=== PATIENT | female | born 1995 | race American Indian/Alaskan Native ===

== ENCOUNTER 2017-10-09 01:14 | Inpatient (IN) | payer MEDICAID ==
[2017-10-09] MEDS ORDERED: LACTATED RINGERS 1,000 ML IV ONE (04:16)
[2017-10-09] MEDS ORDERED: SUBLIMAZE IV ONE (04:49)
[2017-10-09] MEDS ORDERED: STADOL IV PRN (04:49)
[2017-10-09] MEDS ORDERED: POLYCILLIN/NS 2 GM/100 ML 2 GM/100 ML BAG IV SCH (05:00)
[2017-10-09] MEDS: LACTATED RINGERS 1,000 ML IV SCH ×3 (05:13→16:39)
[2017-10-09 05:19] LABS: Basophils # (Auto) 0.1 K/mm3 (0.0-0.1); Basophils % (Auto) 0.5 % (0.0-1.8); Eosinophils # (Auto) 0.1 K/mm3 (0.0-0.4); Eosinophils % (Auto) 0.9 % (0.0-4.3); Hematocrit 41.7 % (30.3-42.9); Hemoglobin 13.9 gm/dl (10.1-14.3); Lymphocytes # (Auto) 2.1 K/mm3 (1.2-5.4); Lymphocytes % (Auto) 15.8 % (13.4-35.0); Mean Corpuscular HGB Conc 33 % (30-34); Mean Corpuscular Hemoglobin 31 pg (28-32); Mean Corpuscular Volume 92 fl (79-97); Monocytes # (Auto) 1.7 K/mm3 (0.0-0.8); Platelet Count 238 K/mm3 (140-440); Red Blood Count 4.56 M/mm3 (3.65-5.03); Red Cell Distribution Width 14.3 % (13.2-15.2)
[2017-10-09] MEDS ORDERED: BRETHINE ONE (07:28)
[2017-10-09] MEDS ORDERED: PITOCin/NS 20 UNIT/1000ML DRIP 20,000 MILLIUNITS/1,000 ML BAG IV ONE (07:31)
--- NOTE | 2017-10-09 07:57 | History and Physical Report ---
History of Present Illness Date of examination: 10/09/17 Date of admission: 10/09/17 04:54 Chief complaint: Labor History of present illness: Pt is a 21yo BF EDC 10/13/17; EGA 39 3/7 weeks presents to L&D complaining of RUC's q 3-5 mins. She received care at [facility], however records are not available and GBS is unknown. Past History Past Medical History: no pertinent history Past Surgical History: no surgical history Family/Genetic History: none Social history: no significant social history, single - Obstetrical History Expected Date of Delivery: 10/13/17 Actual Gestation: 39 Week(s) 3 Day(s) : 1 Medications and Allergies Allergies Allergy/AdvReac Type Severity Reaction Status Date / Time No Known Allergies Allergy Unverified 10/09/17 01:30 Home Medications Medication Instructions Recorded Confirmed Last Taken Type No Known Home Medications [No 10/09/17 10/09/17 Unknown History Reported Home Medications] Active Meds: Active Medications Butorphanol Tartrate (Stadol) 2 mg IV Q2H PRN PRN Reason: Labor Pain Ampicillin Sodium (Polycillin/Ns 2 Gm/100 Ml) 2 gm in 100 mls @ 100 mls/hr IV ONCE BREE PRN Reason: Protocol Lactated Ringer's (Lactated Ringers) 1,000 mls @ 125 mls/hr IV DIRECT BREE Last Admin: 10/09/17 05:13 Dose: 125 mls/hr Review of Systems All systems: negative - Vital Signs Vital signs: Vital Signs Temp Pulse Resp BP Pulse Ox 98.6 F 84 18 125/95 100 10/09/17 01:44 10/09/17 01:44 10/09/17 01:44 10/09/17 01:44 10/09/17 01:44 Temp Pulse Resp BP Pulse Ox 97.8 F 88 18 131/74 100 10/09/17 05:24 10/09/17 07:58 10/09/17 01:44 10/09/17 07:50 10/09/17 07:58 - Physical Exam Breasts: Positive: deferred Cardiovascular: Regular rate Lungs: Positive: Clear to auscultation Abdomen: Positive: normal appearance Genitourinary (Female): Positive: normal external genitalia Vagina: Positive: normal moisture Uterus: Positive: enlarged Extremities: Positive: normal - Obstetrical FHR: category 2 Uterine Contraction Monitor Mode: External Cervical Dilatation: 8 Cervical Effacement Percentage: 100 station: 0 Results Result Diagrams: 10/09/17 04:30 Abnormal lab results 10/09/17 Range/Units 04:30 WBC 13.1 H (4.5-11.0) K/mm3 [place] % (Auto) 13.0 H (0.0-7.3) % [place] # 1.7 H (0.0-0.8) K/mm3 Seg Neutrophils # 9.2 H (1.8-7.7) K/mm3 All other labs normal. Assessment and Plan - Patient Problems (1) 39 weeks gestation of Onset Date: 10/09/17 Current Visit: Yes Status: Acute Plan to address problem: A: IUP @ 39 3/7 weeks in labor Unknown GBS P: Admit to L&D for expectant vaginal delivery Obtain records
[2017-10-09] MEDS ORDERED: ePHEDrine SULFATE IV PRN ×2 (08:07→11:25)
[2017-10-09] MEDS ORDERED: ZOFRAN IV PRN ×2 (08:07→17:48)
[2017-10-09] MEDS ORDERED: BRETHINE SUB-Q PRN (08:07)
[2017-10-09] MEDS ORDERED: BRETHINE IVP PRN (08:07)
[2017-10-09] MEDS ORDERED: XYLOCAINE 2% INFILTRATI ONE (08:07)
[2017-10-09] MEDS ORDERED: MINERAL OIL PO PRN (08:07)
[2017-10-09] MEDS ORDERED: PITOCin/NS 20 UNIT/1000ML DRIP 20 UNITS/1,000 ML BAG IV SCH ×3 (09:00→18:00)
[2017-10-09] MEDS ORDERED: LACTATED RINGERS 1,000 ML IV SCH ×2 (09:00→17:00)
[2017-10-09] MEDS ORDERED: PITOCin/NS 30 UNIT/500ML 30 UNITS/500 ML BAG IV SCH ×2 (09:00)
[2017-10-09] MEDS ORDERED: NACL 0.9% 1000 ML 1,000 ML ONE (10:28)
[2017-10-09] MEDS ORDERED: NACL 0.9% 1000 ML 1,000 ML VG SCH (11:00)
[2017-10-09] MEDS ORDERED: NARCAN 2 MG/2 ML IV PRN (11:25)
[2017-10-09] MEDS ORDERED: fentaNYL-BUPIV 2 MCG/ML-0.125% 200 MCG/100 ML BAG EPIDURAL SCH ×2 (12:00→18:00)
[2017-10-09] MEDS ORDERED: AMPICILLIN/NS 1 GM/50 ML 1 GM/50 ML BAG IV SCH (12:09)
[2017-10-09] MEDS ORDERED: XYLOCAINE MPF 2% ONE ×2 (16:23)
--- NOTE | 2017-10-09 16:29 | Progress Note ---
Assessment and Plan - Patient Problems (1) 39 weeks gestation of Onset Date: 10/09/17 Current Visit: Yes Status: Acute Plan to address problem: A: IUP @ 39 3/7 weeks - arrest of labor. Failure to progress Unknown GBS - received 2 doses of Ampicillin P: Will proceed with C Section Subjective - Subjective Date of service: 10/09/17 Principal diagnosis: IUP @ 39 3/7 weeks Interval history: Pt is currently on pitocin 16mu/min and jennifer q 3-[address] mins [address] epidural in place. Patient reports: loss of fluid, movement normal, contractions, no new complaints, no vaginal bleeding Objective - Vital Signs Vital Signs: Vital Signs - 12hr 10/09/17 10/09/17 10/09/17 05:13 05:24 05:25 Temperature 97.8 F Pulse Rate 77 81 91 H Respiratory Rate Blood Pressure 136/83 Blood Pressure 136/86 [Left] O2 Sat by Pulse 44 L Oximetry 10/09/17 10/09/17 10/09/17 05:30 05:35 05:40 Temperature Pulse Rate 90 96 H 104 H Respiratory Rate Blood Pressure Blood Pressure [Left] O2 Sat by Pulse 99 100 98 Oximetry 10/09/17 10/09/17 10/09/17 05:44 05:45 05:50 Temperature Pulse Rate 77 109 H 77 Respiratory Rate Blood Pressure 135/79 Blood Pressure [Left] O2 Sat by Pulse 97 99 Oximetry 10/09/17 10/09/17 10/09/17 07:18 07:23 07:25 Temperature Pulse Rate 85 89 92 H Respiratory Rate Blood Pressure Blood Pressure [Left] O2 Sat by Pulse 98 96 92 Oximetry 10/09/17 10/09/17 10/09/17 07:28 07:33 07:38 Temperature Pulse Rate 84 74 78 Respiratory Rate Blood Pressure Blood Pressure [Left] O2 Sat by Pulse 100 99 98 Oximetry 10/09/17 10/09/17 10/09/17 07:43 07:47 07:48 Temperature Pulse Rate 80 126 H 100 H Respiratory Rate Blood Pressure Blood Pressure [Left] O2 Sat by Pulse 99 90 100 Oximetry 10/09/17 10/09/17 10/09/17 07:50 07:53 07:56 Temperature 97.9 F Pulse Rate 94 H 90 Respiratory 18 Rate Blood Pressure 131/74 Blood Pressure [Left] O2 Sat by Pulse 100 Oximetry 10/09/17 10/09/17 10/09/17 07:58 08:03 08:07 Temperature Pulse Rate 88 110 H 113 H Respiratory Rate Blood Pressure 123/80 Blood Pressure [Left] O2 Sat by Pulse 100 100 Oximetry 10/09/17 10/09/17 10/09/17 08:08 08:13 08:16 Temperature Pulse Rate 88 106 H 126 H Respiratory Rate Blood Pressure Blood Pressure [Left] O2 Sat by Pulse 100 100 92 Oximetry 10/09/17 10/09/17 10/09/17 08:18 08:22 08:23 Temperature Pulse Rate 109 H 109 H 96 H Respiratory Rate Blood Pressure 128/80 Blood Pressure [Left] O2 Sat by Pulse 100 92 100 Oximetry 10/09/17 10/09/17 10/09/17 08:28 08:33 08:36 Temperature Pulse Rate 82 88 90 Respiratory Rate Blood Pressure 130/66 Blood Pressure [Left] O2 Sat by Pulse 100 100 Oximetry 10/09/17 10/09/17 10/09/17 08:38 08:43 08:48 Temperature Pulse Rate 110 H 78 80 Respiratory Rate Blood Pressure Blood Pressure [Left] O2 Sat by Pulse 91 100 100 Oximetry 10/09/17 10/09/17 10/09/17 08:52 08:53 08:58 Temperature Pulse Rate 81 87 80 Respiratory Rate Blood Pressure 106/58 Blood Pressure [Left] O2 Sat by Pulse 100 100 Oximetry 10/09/17 10/09/17 10/09/17 09:03 09:06 09:08 Temperature Pulse Rate 77 81 76 Respiratory Rate Blood Pressure 127/56 Blood Pressure [Left] O2 Sat by Pulse 100 100 Oximetry 10/09/17 10/09/17 10/09/17 09:13 09:18 09:20 Temperature Pulse Rate 79 85 88 Respiratory Rate Blood Pressure 134/78 Blood Pressure [Left] O2 Sat by Pulse 98 99 Oximetry 10/09/17 10/09/17 10/09/17 09:23 09:28 09:33 Temperature Pulse Rate 86 86 78 Respiratory Rate Blood Pressure Blood Pressure [Left] O2 Sat by Pulse 99 98 98 Oximetry 10/09/17 10/09/17 10/09/17 09:35 09:38 09:40 Temperature Pulse Rate 101 H 100 H 92 H Respiratory Rate Blood Pressure 124/79 Blood Pressure [Left] O2 Sat by Pulse 99 88 Oximetry 10/09/17 10/09/17 10/09/17 09:43 09:48 09:51 Temperature Pulse Rate 94 H 94 H 88 Respiratory Rate Blood Pressure 128/61 Blood Pressure [Left] O2 Sat by Pulse 97 99 Oximetry 10/09/17 10/09/17 10/09/17 09:53 09:58 10:03 Temperature Pulse Rate 82 74 79 Respiratory Rate Blood Pressure Blood Pressure [Left] O2 Sat by Pulse 97 98 98 Oximetry 10/09/17 10/09/17 10/09/17 10:06 10:08 10:14 Temperature Pulse Rate 73 107 H 75 Respiratory Rate Blood Pressure 98/54 Blood Pressure [Left] O2 Sat by Pulse 98 87 Oximetry 10/09/17 10/09/17 10/09/17 10:19 10:21 10:22 Temperature Pulse Rate 75 73 85 Respiratory Rate Blood Pressure 99/48 Blood Pressure [Left] O2 Sat by Pulse 89 87 Oximetry 10/09/17 10/09/17 10/09/17 10:24 10:29 10:34 Temperature Pulse Rate 75 79 95 H Respiratory Rate Blood Pressure Blood Pressure [Left] O2 Sat by Pulse 99 100 100 Oximetry 10/09/17 10/09/17 10/09/17 10:36 10:39 10:44 Temperature Pulse Rate 75 73 75 Respiratory Rate Blood Pressure 108/58 Blood Pressure [Left] O2 Sat by Pulse 100 100 Oximetry 10/09/17 10/09/17 10/09/17 10:49 10:50 10:54 Temperature Pulse Rate 78 70 72 Respiratory Rate Blood Pressure 92/44 Blood Pressure [Left] O2 Sat by Pulse 98 98 Oximetry 10/09/17 10/09/17 10/09/17 10:59 11:04 11:05 Temperature Pulse Rate 70 69 69 Respiratory Rate Blood Pressure 87/48 Blood Pressure [Left] O2 Sat by Pulse 98 99 Oximetry 10/09/17 10/09/17 10/09/17 11:09 11:14 11:19 Temperature Pulse Rate 86 73 78 Respiratory Rate Blood Pressure Blood Pressure [Left] O2 Sat by Pulse 99 98 98 Oximetry 10/09/17 10/09/17 10/09/17 11:20 11:21 11:24 Temperature 98.9 F Pulse Rate 74 74 Respiratory 18 Rate Blood Pressure 91/49 Blood Pressure [Left] O2 Sat by Pulse 98 Oximetry 10/09/17 10/09/17 10/09/17 11:29 11:31 11:34 Temperature Pulse Rate 71 80 76 Respiratory Rate Blood Pressure Blood Pressure [Left] O2 Sat by Pulse 98 94 100 Oximetry 10/09/17 10/09/17 10/09/17 11:36 11:39 11:40 Temperature Pulse Rate 78 89 81 Respiratory Rate Blood Pressure 96/62 107/55 Blood Pressure [Left] O2 Sat by Pulse 86 98 Oximetry 10/09/17 10/09/17 10/09/17 11:42 11:44 11:46 Temperature Pulse Rate 87 86 81 Respiratory Rate Blood Pressure 118/59 125/69 114/64 Blood Pressure [Left] O2 Sat by Pulse 97 Oximetry 10/09/17 10/09/17 10/09/17 11:48 11:49 11:50 Temperature Pulse Rate 84 73 72 Respiratory Rate Blood Pressure 105/57 123/68 Blood Pressure [Left] O2 Sat by Pulse 98 Oximetry 10/09/17 10/09/17 10/09/17 11:52 11:54 11:56 Temperature Pulse Rate 85 80 75 Respiratory Rate Blood Pressure 122/59 110/56 108/53 Blood Pressure [Left] O2 Sat by Pulse 100 Oximetry 10/09/17 10/09/17 10/09/17 11:58 11:59 12:00 Temperature Pulse Rate 81 96 H 81 Respiratory Rate Blood Pressure 111/64 110/54 Blood Pressure [Left] O2 Sat by Pulse 99 Oximetry 10/09/17 10/09/17 10/09/17 12:03 12:04 12:06 Temperature Pulse Rate 96 H 72 82 Respiratory Rate Blood Pressure 117/57 109/58 Blood Pressure [Left] O2 Sat by Pulse 99 Oximetry 10/09/17 10/09/17 10/09/17 12:08 12:09 12:14 Temperature Pulse Rate 105 H 73 74 Respiratory Rate Blood Pressure 113/67 Blood Pressure [Left] O2 Sat by Pulse 100 100 Oximetry 10/09/17 10/09/17 10/09/17 12:19 12:23 12:24 Temperature Pulse Rate 84 82 77 Respiratory Rate Blood Pressure 119/68 Blood Pressure [Left] O2 Sat by Pulse 100 100 Oximetry 10/09/17 10/09/17 10/09/17 12:29 12:34 12:38 Temperature Pulse Rate 75 70 71 Respiratory Rate Blood Pressure 122/74 Blood Pressure [Left] O2 Sat by Pulse 100 100 Oximetry 10/09/17 10/09/17 10/09/17 12:39 12:44 12:49 Temperature Pulse Rate 72 91 H 81 Respiratory Rate Blood Pressure Blood Pressure [Left] O2 Sat by Pulse 100 100 100 Oximetry 10/09/17 10/09/17 10/09/17 12:53 12:54 12:59 Temperature Pulse Rate 71 71 76 Respiratory Rate Blood Pressure 126/79 Blood Pressure [Left] O2 Sat by Pulse 100 100 Oximetry 10/09/17 10/09/17 10/09/17 13:04 13:08 13:09 Temperature Pulse Rate 74 72 70 Respiratory Rate Blood Pressure 122/67 Blood Pressure [Left] O2 Sat by Pulse 100 100 Oximetry 10/09/17 10/09/17 10/09/17 13:14 13:19 13:23 Temperature Pulse Rate 68 92 H 77 Respiratory Rate Blood Pressure 118/66 Blood Pressure [Left] O2 Sat by Pulse 100 100 Oximetry 10/09/17 10/09/17 10/09/17 13:24 13:29 13:34 Temperature Pulse Rate 82 76 85 Respiratory Rate Blood Pressure Blood Pressure [Left] O2 Sat by Pulse 100 100 100 Oximetry 10/09/17 10/09/17 10/09/17 13:38 13:39 13:44 Temperature Pulse Rate 77 82 70 Respiratory Rate Blood Pressure 120/69 Blood Pressure [Left] O2 Sat by Pulse 100 100 Oximetry 10/09/17 10/09/17 10/09/17 13:49 13:51 13:53 Temperature 98.5 F Pulse Rate 77 65 Respiratory 18 Rate Blood Pressure 122/67 Blood Pressure [Left] O2 Sat by Pulse 100 Oximetry 10/09/17 10/09/17 10/09/17 13:54 13:59 14:05 Temperature Pulse Rate 72 76 74 Respiratory Rate Blood Pressure Blood Pressure [Left] O2 Sat by Pulse 100 100 100 Oximetry 10/09/17 10/09/17 10/09/17 14:09 14:14 14:19 Temperature Pulse Rate 75 85 88 Respiratory Rate Blood Pressure 121/68 Blood Pressure [Left] O2 Sat by Pulse 100 100 100 Oximetry 10/09/17 10/09/17 10/09/17 14:24 14:29 14:34 Temperature Pulse Rate 87 85 80 Respiratory Rate Blood Pressure 128/75 Blood Pressure [Left] O2 Sat by Pulse 100 100 100 Oximetry 10/09/17 10/09/17 10/09/17 14:38 14:40 14:44 Temperature Pulse Rate 82 72 79 Respiratory Rate Blood Pressure 123/61 Blood Pressure [Left] O2 Sat by Pulse 100 100 Oximetry 10/09/17 10/09/17 10/09/17 14:49 14:53 14:55 Temperature Pulse Rate 72 75 69 Respiratory Rate Blood Pressure 122/59 Blood Pressure [Left] O2 Sat by Pulse 100 100 Oximetry 10/09/17 10/09/17 10/09/17 15:00 15:05 15:08 Temperature Pulse Rate 79 71 78 Respiratory Rate Blood Pressure 125/70 Blood Pressure [Left] O2 Sat by Pulse 100 100 Oximetry 10/09/17 10/09/17 10/09/17 15:10 15:15 15:20 Temperature Pulse Rate 105 H 75 73 Respiratory Rate Blood Pressure Blood Pressure [Left] O2 Sat by Pulse 100 100 100 Oximetry 10/09/17 10/09/17 10/09/17 15:23 15:25 15:30 Temperature Pulse Rate 71 71 85 Respiratory Rate Blood Pressure 121/70 Blood Pressure [Left] O2 Sat by Pulse 100 100 Oximetry 10/09/17 10/09/17 10/09/17 15:35 15:39 15:40 Temperature Pulse Rate 71 71 79 Respiratory Rate Blood Pressure 126/76 Blood Pressure [Left] O2 Sat by Pulse 100 100 Oximetry 10/09/17 10/09/17 10/09/17 15:45 15:50 15:53 Temperature Pulse Rate 75 93 H 109 H Respiratory Rate Blood Pressure 137/86 Blood Pressure [Left] O2 Sat by Pulse 100 100 Oximetry 10/09/17 10/09/17 10/09/17 15:55 16:00 16:02 Temperature Pulse Rate 78 98 H 80 Respiratory Rate Blood Pressure Blood Pressure [Left] O2 Sat by Pulse 100 100 92 Oximetry 10/09/17 10/09/17 10/09/17 16:05 16:08 16:09 Temperature Pulse Rate 107 H 76 104 H Respiratory Rate Blood Pressure 121/56 Blood Pressure [Left] O2 Sat by Pulse 89 85 Oximetry 10/09/17 10/09/17 10/09/17 16:10 16:14 16:15 Temperature Pulse Rate 89 63 101 H Respiratory Rate Blood Pressure Blood Pressure [Left] O2 Sat by Pulse 100 78 L 100 Oximetry 10/09/17 10/09/17 10/09/17 16:20 16:23 16:25 Temperature Pulse Rate 72 88 93 H Respiratory Rate Blood Pressure 132/65 Blood Pressure [Left] O2 Sat by Pulse 72 L 99 Oximetry - Exam Breasts: mass Abdomen: Present: normal appearance FHR: category 2 Uterine Contraction Monitor Mode: External Cervical Dilatation: 9.5 Cervical Effacement Percentage: 90 station: -1 Uterine Contraction Pattern: Regular Uterine Tone Measurement Phase: Contraction Uterine Contraction Intensity: Moderate - Labs Labs: Abnormal Labs 10/09/17 04:30 WBC 13.1 H Mcpherson % (Auto) 13.0 H Mcpherson # 1.7 H Seg Neutrophils # 9.2 H Laboratory Results - last 24 hr 10/09/17 10/09/17 10/09/17 04:30 04:30 04:30 WBC 13.1 H RBC 4.56 Hgb 13.9 Hct 41.7 MCV 92 MCH 31 MCHC 33 RDW 14.3 Plt Count 238 Lymph % (Auto) 15.8 [place]pherson % (Auto) 13.0 H Eos % (Auto) 0.9 Baso % (Auto) 0.5 Lymph # 2.1 Mcpherson # 1.7 H Eos # 0.1 Baso # 0.1 Seg Neutrophils % 69.8 Seg Neutrophils # 9.2 H RPR Nonreactive Blood Type B POSITIVE Antibody Screen Negative
--- NOTE | 2017-10-09 16:34 | Anesthesia Day of Surgery ---
Anesthesia Day of Surgery - Day of Surgery Patient Examined: Yes Patient H&P Reviewed: Yes Patient is NPO: Yes
--- NOTE | 2017-10-09 16:34 | Anesthesia Consultation ---
Anesthesia Consult and Med Hx Date of service: 10/09/17 - Airway Anesthetic Teeth Evaluation: Good Mental/Hyoid Distance: Adequate Mallampati Class: Class III Intubation Access Assessment: Possibly Difficult - Pulmonary Exam CTA: Yes - Cardiac Exam Cardiac Exam: RRR - Pre-Operative Health Status ASA Pre-Surgery Classification: ASA2 Proposed Anesthetic Plan: Epidural - Pulmonary Hx Smoking: No Hx Asthma: No COPD: No Hx Pneumonia: No - Cardiovascular System Hx Hypertension: No - Central Nervous System Hx Seizures: No Hx Psychiatric Problems: No - Endocrine Hx Renal Disease: No Hx End Stage Renal Disease: No Hx Hypothyroidism: No Hx Hyperthyroidism: No - Hematic Hx Anemia: No Hx Sickle Cell Disease: No - Other Systems Hx Alcohol Use: No
[2017-10-09] MEDS ORDERED: WATER FOR IRRIG STERILE IR ONE (16:50)
[2017-10-09] MEDS ORDERED: ANCEF IV ONE (16:52)
[2017-10-09] MEDS ORDERED: BICITRA PO ONE (17:00)
[2017-10-09] MEDS ORDERED: PEPCID IV ONE (17:00)
[2017-10-09] MEDS ORDERED: REGLAN IV ONE (17:00)
[2017-10-09] MEDS ORDERED: ANCEF/STERILE WATER 2 GM/20 ML 2 GM/20 ML SYRINGE IV NR (17:00)
[2017-10-09] MEDS ORDERED: NEO SYNEPHRINE/NS Syringe(OR USE) IV ONE (17:10)
[2017-10-09] MEDS ORDERED: NORMODYNE IV ONE (17:16)
[2017-10-09] MEDS ORDERED: MILK OF MAGNESIA PO PRN (17:30)
[2017-10-09] MEDS ORDERED: MYLICON PO PRN (17:30)
[2017-10-09] MEDS ORDERED: NORCO 5/325 PO PRN (17:30)
[2017-10-09] MEDS ORDERED: TUCKS PAD TP PRN (17:30)
[2017-10-09] MEDS ORDERED: TYLENOL PO PRN (17:30)
[2017-10-09] MEDS ORDERED: LANSINOH TP PRN (17:30)
[2017-10-09] MEDS ORDERED: NARCAN 0.4 MG/1 ML IV PRN ×2 (17:30→17:48)
[2017-10-09] MEDS ORDERED: PHENERGAN PR PRN ×2 (17:30→17:48)
[2017-10-09] MEDS ORDERED: PHENERGAN PO PRN (17:48)
--- NOTE | 2017-10-09 17:48 | Post Anesthesia Evaluation ---
- Post Anesthesia Evaluation Patient Participated: Yes Airway Patent: Yes Stable Respiratory Function: Yes Nausea/Vomiting: No Temp > 96.8F: Yes Pain Manageable: Yes Adequeate Hydration: Yes Anesthesia Complications: No Block Receding Appropriately: Yes Patient on Ventilator: No
[2017-10-09] MEDS ORDERED: ANCEF/NS 1 GM/50 ML 1 GM/50 ML BAG IV SCH (18:00)
[2017-10-09] MEDS ORDERED: SODIUM CHLORIDE FLUSH SYRINGE 10 ML IV NR ×2 (18:00)
[2017-10-09] MEDS: DILAUDID IV PRN ×2 (18:12→18:53)
--- NOTE | 2017-10-09 18:32 | Operative Report ---
Operative Report Operative Report: Date of procedure: 10/09/2017 Pre-operative diagnosis: 1. Intrauterine at 39-3/7 weeks in labor 2. Meconium fluid 3. Failure to progress Post-operative diagnosis: Same Procedure name(s): Primary low transverse section Surgeon: George Vila MD Hand Packer: None Anesthesia: Epidural anesthesia by Dr. Brandon EBL: 600 mL's Findings: A 2878 g female infant Apgars 2 at 1 minutes 7 at 5 minutes. Tight triple nuchal cord. Meconium fluid. Normal uterus. Normal tubes and ovaries bilaterally. Procedure: After the patient was prepped and draped in usual sterile fashion, and after satisfactory level of epidural anesthesia was obtained, the skin knife was used to make a transverse skin incision. The incision was excised down to layer of the fascia, which was nicked in the midline and extended laterally using the Bovie cautery. The rectus muscles were dissected off the rectus fascia both superiorly and inferiorly. The rectus bellies in the midline, and the peritoneum was entered under direct visualization. The peritoneal incision was extended superiorly and inferiorly. A bladder flap was created and the bladder blade was then placed. The uterus was scored in a curvilinear linear fashion, entered in the midline revealing meconium amniotic fluid. The 's head was delivered onto the surgical field, tight nuchal cord 3 was reduced, and the oropharynx and nasopharynx were bulb suctioned. The rest of the 's body was delivered, cord was doubly clamped and cut and the infant was handed to the waiting respiratory team. The placenta was manually removed from the uterus, and the uterus removed from its normal anatomical position. After gentle uterine lavage, the incision was inspected and found to be without extensions. It was then closed in 2 layers using 0 Vicryl suture in a running interlocking fashion, the second layer imbricating the first. After good hemostasis was achieved, copious amounts or irrigation was performed, and the gutters were suctioned free of blood and blood clots. Tisseel sealant was sprayed across the uterine incision. The uterus was then returned to its normal anatomical position, and after excellent hemostasis assured, the peritoneum was re-approximated using 3-0 Vicryl suture in a running interlocking fashion, and then the rectus muscles were re-approximated using 3-0 Vicryl suture in a [id number] configuration. The fascia was then re-approximated using 0 Vicryl suture in running interlocking fashion. The subcutaneous layer was made hemostatic using Bovie cautery, the Tisseel sealant was sprayed across the fascial incision and the skin edges re- approximated using 4-0 Vicryl suture in a sub-cuticular fashion. Patient tolerated the procedure well was transported to recovery in stable condition.
[2017-10-09] MEDS: TORADOL IV PRN (19:30)
[2017-10-09] MEDS: ceFAZolin 1 GM in NACL 0.9% 20 ML IV SCH (22:02)
[2017-10-10] MEDS: TORADOL IV PRN (02:02)
[2017-10-10] MEDS: D5LR 1,000 ML IV SCH ×3 (02:05→18:24)
[2017-10-10] MEDS: ceFAZolin 1 GM in NACL 0.9% 20 ML IV SCH (06:14)
[2017-10-10] MEDS: SENOKOT PO PRN ×2 (06:15→22:24)
[2017-10-10 06:18] LABS: Hematocrit 28.3 % (30.3-42.9); Hemoglobin 9.7 gm/dl (10.1-14.3)
--- NOTE | 2017-10-10 08:37 | Progress Note ---
Assessment and Plan - Patient Problems (1) 39 weeks gestation of Onset Date: 10/09/17 Current Visit: Yes Status: Resolved (2) Status post Onset Date: 10/10/17 Current Visit: Yes Status: Resolved Plan to address problem: A: S/P C Section - POD #1 Doing well Asymptomatic anemia - stable P: Continue RPOC Anticipate discharge in 24-48hrs (3) Acute blood loss anemia Onset Date: 10/10/17 Current Visit: Yes Status: Resolved Subjective - Subjective Date of service: 10/10/17 Principal diagnosis: s/p C Section - POD #1 Interval history: Pt is feeling well without complaints. Bleeding improved. Tolerating a liquid diet without nausea or vomiting. Patient reports: appetite normal, voiding normally, pain well controlled, ambulating normally, no flatus, no nauseated [place]: doing well, transported (to [place]) Objective - Vital Signs Latest vital signs: Vital Signs Temp Pulse Resp BP Pulse Ox 10/10/17 04:35 98.5 F 87 20 112/63 97 10/10/17 02:32 18 10/10/17 02:02 18 10/10/17 01:10 99.2 F 86 20 110/68 100 10/09/17 20:37 97.9 F 96 H 18 122/63 100 10/09/17 20:00 18 10/09/17 19:30 100 H 15 128/61 97 10/09/17 19:23 18 10/09/17 19:20 104 H 15 99/41 97 10/09/17 19:10 104 H 13 110/49 98 10/09/17 19:00 114 H 15 125/60 98 10/09/17 18:50 101 H 39 H 110/48 97 10/09/17 18:40 105 H 18 124/66 100 10/09/17 18:30 107 H 26 H 122/63 99 10/09/17 18:20 109 H 17 122/70 99 10/09/17 18:10 98 H 14 123/64 99 10/09/17 18:00 96 H 16 121/59 100 10/09/17 17:50 104 H 19 117/58 99 10/09/17 17:48 98 10/09/17 17:40 98.8 F 10/09/17 16:45 110 H 100 10/09/17 16:40 131 H 100 02/25/18 16:38 171 H 127/58 10/09/17 16:35 121 H 99 10/09/17 16:30 105 H 100 10/09/17 16:25 93 H 99 10/09/17 16:23 88 132/65 10/09/17 16:20 72 72 L 10/09/17 16:15 101 H 100 10/09/17 16:14 63 78 L 10/09/17 16:10 89 100 10/09/17 16:09 104 H 121/56 10/09/17 16:08 76 85 10/09/17 16:05 107 H 89 10/09/17 16:02 80 92 10/09/17 16:00 98 H 100 10/09/17 15:55 78 100 10/09/17 15:53 109 H 137/86 10/09/17 15:50 93 H 100 10/09/17 15:45 75 100 10/09/17 15:40 79 100 10/09/17 15:39 71 126/76 10/09/17 15:35 71 100 10/09/17 15:30 85 100 10/09/17 15:25 71 100 10/09/17 15:23 71 121/70 10/09/17 15:20 73 100 10/09/17 15:15 75 100 10/09/17 15:10 105 H 100 10/09/17 15:08 78 125/70 10/09/17 15:05 71 100 10/09/17 15:00 79 100 10/09/17 14:55 69 100 10/09/17 14:53 75 122/59 10/09/17 14:49 72 100 18 14:44 79 100 10/09/17 14:40 72 100 10/09/17 14:38 82 123/61 10/09/17 14:34 80 100 10/09/17 14:29 85 100 10/09/17 14:24 87 128/75 100 10/09/17 14:19 88 100 10/09/17 14:14 85 100 10/09/17 14:09 75 121/68 100 10/09/17 14:05 74 100 10/09/17 13:59 76 100 10/09/17 13:54 72 100 10/09/17 13:53 65 122/67 02/18 13:51 98.5 F 18 10/09/17 13:49 77 100 18 13:44 70 100 18 13:39 82 100 18 13:38 77 120/69 0218 13:34 85 100 10/09/17 13:29 76 100 18 13:24 82 100 10/09/17 13:23 77 118/66 10/09/17 13:19 92 H 100 10/09/17 13:14 68 100 10/09/17 13:09 70 100 10/09/17 13:08 72 122/67 10/09/17 13:04 74 100 10/09/17 12:59 76 100 10/09/17 12:54 71 100 10/09/17 12:53 71 126/79 10/09/17 12:49 81 100 10/09/17 12:44 91 H 100 10/09/17 12:39 72 100 10/09/17 12:38 71 122/74 10/09/17 12:34 70 100 10/09/17 12:29 75 100 10/09/17 12:24 77 100 10/09/17 12:23 82 119/68 10/09/17 12:19 84 100 10/09/17 12:14 74 100 10/09/17 12:09 73 100 10/09/17 12:08 105 H 113/67 10/09/17 12:06 82 109/58 10/09/17 12:04 72 99 10/09/17 12:03 96 H 117/57 10/09/17 12:00 81 110/54 0218 11:59 96 H 99 18 11:58 81 111/64 18 11:56 75 108/53 10/09/17 11:54 80 110/56 100 18 11:52 85 122/59 18 11:50 72 123/68 0218 11:49 73 98 18 11:48 84 105/57 18 11:46 81 114/64 18 11:44 86 125/69 97 18 11:42 87 118/59 10/09/17 11:40 81 107/55 02/18 11:39 89 98 18 11:36 78 96/62 86 02 11:34 76 100 18 11:31 80 94 10/09/17 11:29 71 98 18 11:24 74 98 10/09/17 11:21 98.9 F 18 10/09/17 11:20 74 91/49 10/09/17 11:19 78 98 10/09/17 11:14 73 98 10/09/17 11:09 86 99 10/09/17 11:05 69 87/48 10/09/17 11:04 69 99 10/09/17 10:59 70 98 10/09/17 10:54 72 98 10/09/17 10:50 70 92/44 10/09/17 10:49 78 98 10/09/17 10:44 75 100 10/09/17 10:39 73 100 10/09/17 10:36 75 108/58 10/09/17 10:34 95 H 100 10/09/17 10:29 79 100 10/09/17 10:24 75 99 10/09/17 10:22 85 87 10/09/17 10:21 73 99/48 10/09/17 10:19 75 89 10/09/17 10:14 75 87 10/09/17 10:08 107 H 98 10/09/17 10:06 73 98/54 10/09/17 10:03 79 98 10/09/17 09:58 74 98 10/09/17 09:53 82 97 10/09/17 09:51 88 128/61 10/09/17 09:48 94 H 99 10/09/17 09:43 94 H 97 10/09/17 09:40 92 H 88 10/09/17 09:38 100 H 99 10/09/17 09:35 101 H 124/79 02 09:33 78 98 10/09/17 09:28 86 98 10/09/17 09:23 86 99 10/09/17 09:20 88 134/78 10/09/17 09:18 85 99 10/09/17 09:13 79 98 10/09/17 09:08 76 100 10/09/17 09:06 81 127/56 10/09/17 09:03 77 100 10/09/17 08:58 80 100 10/09/17 08:53 87 100 10/09/17 08:52 81 106/58 10/09/17 08:48 80 100 10/09/17 08:43 78 100 Intake and Output 10/09/17 10/10/17 10/10/17 22:59 06:59 14:59 Intake Total 1745.833 120 Output Total 1700 600 Balance 45.833 -480 Intake: IV 1745.833 Lactated Ringers 1,000 ml 745.833 @ 125 mls/hr IV DIRECT BREE Rx#:[id number] Intake, Free Water 120 Output: Urine 1700 600 Indwelling Catheter 750 600 Other: Total, Output Amount 750 600 Estimated Blood Loss 600 - Exam Breasts: Present: deferred Cardiovascular: Present: Regular rate Lungs: Present: Clear to auscultation Abdomen: Present: normal appearance, soft Uterus: Present: normal, firm, fundal height below umbilicus Extremities: Present: normal Incision: Present: normal, dry, intact, dressed - Labs Labs: Abnormal lab results 10/09/17 10/09/17 10/10/17 Range/Units 17:40 17:45 05:42 Hgb 9.7 L D (10.1-14.3) gm/dl Hct 28.3 L D (30.3-42.9) % POC ABG pH 7.194 L 7.268 L (7.35-7.45) POC ABG pCO2 63.4 H 48.6 H (35-45) POC ABG pO2 15 L 28 L (80-105) Laboratory Tests 10/09/17 10/09/17 10/09/17 04:30 04:30 04:30 WBC 13.1 H RBC 4.56 Hgb 13.9 Hct 41.7 MCV 92 MCH 31 MCHC 33 RDW 14.3 Plt Count 238 Lymph % (Auto) 15.8 [place] % (Auto) 13.0 H Eos % (Auto) 0.9 Baso % (Auto) 0.5 Lymph # 2.1 [place] # 1.7 H Eos # 0.1 Baso # 0.1 Seg Neutrophils % 69.8 Seg Neutrophils # 9.2 H POC ABG pH POC ABG pCO2 POC ABG pO2 POC ABG HCO3 POC ABG Total CO2 POC ABG O2 Sat POC ABG Base Excess FiO2 RPR Nonreactive Hep Bs Antigen Blood Type B POSITIVE Antibody Screen Negative 10/09/17 10/09/17 10/09/17 04:30 17:40 17:45 WBC RBC Hgb Hct MCV MCH MCHC RDW Plt Count Lymph % (Auto) [place] % (Auto) Eos % (Auto) Baso % (Auto) Lymph # [place] # Eos # Baso # Seg Neutrophils % Seg Neutrophils # POC ABG pH 7.194 L 7.268 L POC ABG pCO2 63.4 H 48.6 H POC ABG pO2 15 L 28 L POC ABG HCO3 24.5 22.2 POC ABG Total CO2 26 24 POC ABG O2 Sat 14 43 POC ABG Base Excess -4 -5 FiO2 35 35 RPR Hep Bs Antigen Non-reactive Blood Type Antibody Screen 10/10/17 05:42 WBC RBC Hgb 9.7 L D Hct 28.3 L D MCV MCH MCHC RDW Plt Count Lymph % (Auto) [place] % (Auto) Eos % (Auto) Baso % (Auto) Lymph # [place] # Eos # Baso # Seg Neutrophils % Seg Neutrophils # POC ABG pH POC ABG pCO2 POC ABG pO2 POC ABG HCO3 POC ABG Total CO2 POC ABG O2 Sat POC ABG Base Excess FiO2 RPR Hep Bs Antigen Blood Type Antibody Screen
[2017-10-10] MEDS ORDERED: FEOSOL PO SCH (10:00)
[2017-10-10] MEDS ORDERED: PRENATAL VITAMIN PO SCH (10:00)
[2017-10-10] MEDS: DILAUDID IV PRN (10:01)
[2017-10-10 12:19] LABS: Hepatitis B Core IgM Non-Reactive (NonReactive); Hepatitis B Surface Antigen Non-Reactive (Negative)
[2017-10-10 12:20] LABS: Hepatitis A Antibody IgM Non-Reactive (NonReactive); Hepatitis C Virus Antibody Non-Reactive (NonReactive)
[2017-10-10] MEDS: MOTRIN PO PRN (15:59)
[2017-10-10] MEDS ORDERED: M-M-R II VACCINE SUB-Q ONE (17:31)
[2017-10-10] MEDS ORDERED: BOOSTRIX IM ONE (17:31)
[2017-10-10] MEDS: PERCOCET 5/325 PO PRN (22:25)
--- NOTE | 2017-10-11 09:04 | Progress Note ---
Assessment and Plan - Patient Problems (1) 39 weeks gestation of Onset Date: 10/09/17 Current Visit: Yes Status: Resolved (2) Status post Onset Date: 10/10/17 Current Visit: Yes Status: Resolved Plan to address problem: A: S/P C Section - POD #2 Doing well Asymptomatic anemia - stable P: May go home today after BM (3) Acute blood loss anemia Onset Date: 10/10/17 Current Visit: Yes Status: Resolved Subjective - Subjective Date of service: 10/11/17 Principal diagnosis: s/p C Section - POD #2 Interval history: Pt is feeling well without complaints. Bleeding improved. Tolerating a reg diet without nausea or vomiting, ambulating and voiding without difficulty. Patient reports: appetite normal, voiding normally, pain well controlled, flatus , ambulating normally, no bowel movement : doing well, transported Objective - Vital Signs Latest vital signs: Vital Signs Temp Pulse Resp BP BP Pulse Ox 10/11/17 00:00 98.7 F 66 16 112/78 10/10/17 20:00 98.6 F 78 16 115/72 10/10/17 16:48 99.1 F 90 18 123/70 97 10/10/17 13:45 13 10/10/17 10:01 18 Intake and Output 10/10/17 10/11/17 10/11/17 22:59 06:59 14:59 Intake Total 1740 300 Output Total 400 Balance 1340 300 Intake: IV 1000 D5lr 1,000 ml @ 125 mls/ 1000 hr IV DIRECT BREE Rx#: [id number] Oral 440 Intake, Free Water 300 300 Output: Urine 400 Void 400 Other: Total, Intake Amount 200 Total, Output Amount 400 - Exam Breasts: Present: deferred Cardiovascular: Present: Regular rate Lungs: Present: Clear to auscultation Abdomen: Present: normal appearance, soft Uterus: Present: normal, firm, fundal height below umbilicus Extremities: Present: normal Incision: Present: normal, dry, intact
--- NOTE | 2017-10-11 09:12 | Discharge Summary ---
Providers - Providers Date of Admission: 10/09/17 04:54 Date of discharge: 10/11/17 Attending physician: JASBIR MINA Primary care physician: JASBIR MINA Hospitalization Reason for admission: active labor, IUP at term Delivery: Procedure: section, primary low transverse Episiotomy: none Laceration: none Incision: normal, dry, intact Other procedures: none complications: none Discharge diagnosis: IUP at term delivered [place] baby: female Hospital course: Pt is a 21yo BF EDC 10/13/17; EGA 39 3/7 weeks who presented to L&D complaining of RUC's q 3-5 mins. She received care at [facility], however records were not available and GBS was unknown. She was admitted in labor, but failed to progress in labor and therefore was delivered by C Section which was uneventful except for the findings of a triple nuchal cord. Pt tolerated the procedure well, and by POD # 2 she was tolerating a reg diet without nausea or vomiting, ambulating and voiding without difficulty. She will therefore be discharged to home on POD #2 in stable condition. Condition at discharge: Good Disposition: DC-01 TO HOME OR SELFCARE - Discharge Diagnoses (1) 39 weeks gestation of Status: Resolved (2) Status post Status: Resolved (3) Acute blood loss anemia Status: Resolved Plan - Discharge Medications Prescriptions: Ferrous Sulfate [Feosol 325 MG tab] 325 mg PO BID #60 tablet HYDROcodone/APAP 5-325 [[place] 5/325] 1 each PO Q6HR PRN #30 tablet PRN Reason: Pain Ibuprofen [Motrin] 800 mg PO Q8HR PRN #30 tablet PRN Reason: Moder Pain Unrelieved By [place] Vit Calc,Iron,Folic [ Vitamins] 1 each PO DAILY #30 tablet - Provider Discharge Summary Activity: routine, no sex for 6 weeks, no heavy lifting 4 weeks, no strenuous exercise Diet: routine Instructions: routine Additional instructions: [] Smoking cessation referral if applicable(refer to patient education folder for contact #) [] Refer to [facility]'s [facility] Booklet Call your doctor immediately for: * Fever > 100.5 * Heavy vaginal bleeding ( >1 pad per hour) * Severe persistent headache * Shortness of breath * Reddened, hot, painful area to leg or breast * Drainage or odor from incision. * Keep incision clean and dry at all times and follow doctor's instructions regarding bathing/showering - Follow up plan Follow up: JASBIR MINA MD [Primary Care Provider] - 14 Days
[2017-10-11 09:18] VITALS: BP 117/71
[2017-10-11] MEDS: MOTRIN PO PRN (12:39)
[2017-10-11] MEDS: PERCOCET 5/325 PO PRN (12:41)
== END 2017-10-11 17:05 | disposition home or self-care (01) | DRG 765 ==
LOC: TRG 01:14 → LD 04:54 → OB 20:32
PROVIDERS: ADMIT Obstetrics & Gynecology; ATTEND Obstetrics & Gynecology
PROC: 10D00Z1 Extraction of Products of Conception, Low, Open Approach (ICD-10-PCS; principal; 2017-10-09)
PROC: 3E0234Z Introduction of Serum, Toxoid and Vaccine into Muscle, Percutaneous Approach (ICD-10-PCS; 2017-10-10)
DX: O77.0 Labor and delivery complicated by meconium in amniotic fluid (principal); D62 Acute posthemorrhagic anemia; O62.0 Primary inadequate contractions; O99.03 Anemia complicating the puerperium; O69.1XX0 Labor and delivery complicated by cord around neck, with compression, not applicable or unspecified; Z3A.39 39 weeks gestation of pregnancy; Z23 Encounter for immunization; Z37.0 Single live birth
CPT/HCPCS: 36415; 80074; 82803; 85014; 85018; 85025; 86592; 86706; 86850; 86900; 86901; 87806; 88305; 88307; 99211; A6250; G0463; J0595; J0690; J1170; J1885; J2370; J2590; J2765; J3105; J7030; J7120; J7121

== ENCOUNTER 2021-05-19 02:32 | Emergency (ER) | payer MEDICAID ==
[2021-05-19] MEDS ORDERED: SODIUM CHLORIDE 0.9% 1000 ML 1,000 ML IV ONE (02:50)
--- NOTE | 2021-05-19 02:53 | Emergency Department Report ---
HPI - General Chief Complaint: Altered Mental Status Time Seen by Provider: 05/19/21 02:44 - HPI HPI: 25-year-old -[place] female presents to the emergency department via EMS with altered mental status. Information was obtained from EMS who says that they were called to see the patient secondary to this altered mental status and some seizure-like activity. As far as they know the patient does not have any history of seizures. The patient ingested one half of a THC gummy bear and drink some wine this evening. She was given a dose of Narcan with no significant change in her status. The patient is currently altered or sedated and therefore a poor historian. ED Past Medical Hx - Past Medical History Previous Medical History?: No Hx Hypertension: No Hx Congestive Heart Failure: No Hx Diabetes: No Hx Deep Vein Thrombosis: No Hx Renal Disease: No Hx Sickle Cell Disease: No Hx Seizures: No Hx Asthma: No Hx COPD: No Hx HIV: No - Surgical History Past Surgical History?: No - Social History Smoking Status: Unknown if ever smoked Substance Use Type: Alcohol, Marijuana - Medications Home Medications: Home Medications Medication Instructions Recorded Confirmed Last Taken Type Ferrous Sulfate [Feosol 325 MG tab] 325 mg PO BID #60 tablet 10/09/17 Unknown Rx HYDROcodone/APAP 5-325 [[place] 1 each PO Q6HR PRN #30 tablet 10/09/17 Unknown Rx 5/325] Ibuprofen [Motrin] 800 mg PO Q8HR PRN #30 tablet 10/09/17 Unknown Rx Vit Calc,Iron,Folic 1 each PO DAILY #30 tablet 10/09/17 Unknown Rx [ Vitamins] ED Review of Systems ROS: Stated complaint: AMS Other details as noted in HPI Comment: Unobtainable due to pts medical conditions Physical Exam - Physical Exam Vital Signs: Vital Signs 05/19/21 02:42 Temperature 98.8 F Pulse Rate 116 H Respiratory 16 Rate Blood Pressure 131/75 [Left] O2 Sat by Pulse 97 Oximetry Physical Exam: GENERAL: The patient is well-developed well-nourished. HENT: Normocephalic. Atraumatic. Patient has moist mucous membranes. EYES: Pupils equal reactive to light bilaterally. NECK: Supple. Trachea is midline. CHEST/LUNGS: Clear to auscultation. There is no respiratory distress noted. HEART/CARDIOVASCULAR: Regular. There is mild tachycardia. There is no murmur. ABDOMEN: Abdomen is soft, nontender. Patient has normal bowel sounds. There is no abdominal distention. SKIN: Skin is warm and dry. NEURO: The patient is extremely sleepy and may be intoxicated. The patient will wake up briefly to verbal and tactile stimuli but goes right back to sleep if not continuously stimulated. MUSCULOSKELETAL: There is no tenderness or deformity. ED Course Vital Signs 05/19/21 02:42 Temperature 98.8 F Pulse Rate 116 H Respiratory 16 Rate Blood Pressure 131/75 [Left] O2 Sat by Pulse 97 Oximetry - Reevaluation(s) Reevaluation #1: 05/19/21 05:29 The patient is now awake, alert, oriented, AAO x3. She admits to ingesting a marijuana gummy bear and had a small amount of wine. At this time the patient's only complaint is fatigue. ED Medical Decision Making - Lab Data Result diagrams: 05/19/21 03:02 05/19/21 03:02 Lab Results 05/19/21 05/19/21 05/19/21 Range/Units 03:02 03:02 03:02 WBC 6.2 (4.5-11.0) K/mm3 RBC 4.60 (3.65-5.03) M/mm3 Hgb 13.8 (10.1-14.3) gm/dl Hct 40.3 (30.3-42.9) % MCV 88 (79-97) fl MCH 30 (28-32) pg MCHC 34 (30-34) % RDW 13.4 (13.2-15.2) % Plt Count 267 (140-440) K/mm3 Lymph % (Auto) 28.0 (13.4-35.0) % [place] % (Auto) 9.8 H (0.0-7.3) % Eos % (Auto) 1.4 (0.0-4.3) % Baso % (Auto) 0.4 (0.0-1.8) % Lymph # (Auto) 1.7 (1.2-5.4) K/mm3 [place] # (Auto) 0.6 (0.0-0.8) K/mm3 Eos # (Auto) 0.1 (0.0-0.4) K/mm3 Baso # (Auto) 0.0 (0.0-0.1) K/mm3 Seg Neutrophils % 60.4 (40.0-70.0) % Seg Neutrophils # 3.7 (1.8-7.7) K/mm3 Sodium 140 (137-145) mmol/L Potassium 3.7 (3.6-5.0) mmol/L Chloride 104.9 (98-107) mmol/L Carbon Dioxide 22 (22-30) mmol/L Anion Gap 17 mmol/L BUN 12 (7-17) mg/dL Creatinine 0.7 (0.6-1.2) mg/dL Estimated GFR > 60 ml/min BUN/Creatinine Ratio 17 % Glucose 125 H (65-100) mg/dL Calcium 10.2 (8.4-10.2) mg/dL Total Bilirubin 0.50 (0.1-1.2) mg/dL AST 13 (5-40) units/L ALT 11 (7-56) units/L Alkaline Phosphatase 66 (35-129) units/L Ammonia 12.0 L (25-60) umol/L Total Creatine Kinase 80 (30-135) units/L Troponin T < 0.010 (0.00-0.029) ng/mL Total Protein 7.7 (6.3-8.2) g/dL Albumin 4.5 (3.9-5) g/dL Albumin/Globulin Ratio 1.4 % TSH (0.270-4.200) mlU/mL HCG, Qual (Negative) Urine Color (Yellow) Urine Turbidity (Clear) Urine pH (5.0-7.0) Ur Specific [place] (1.003-1.030) Urine Protein (Negative) mg/dL Urine Glucose (UA) (Negative) mg/dL Urine Ketones (Negative) mg/dL Urine Blood (Negative) Urine Nitrite (Negative) Urine Bilirubin (Negative) Urine Urobilinogen (<2.0) mg/dL Ur Leukocyte Esterase (Negative) Urine WBC (Auto) (0.0-6.0) /HPF Urine RBC (Auto) (0.0-6.0) /HPF Salicylates (2.8-20.0) mg/dL Urine Opiates Screen Urine Methadone Screen Acetaminophen (10.0-30.0) ug/mL Ur Barbiturates Screen Ur Phencyclidine Scrn Ur Amphetamines Screen U Benzodiazepines Scrn Urine Cocaine Screen U Marijuana (THC) Screen Drugs of Abuse Note Plasma/Serum Alcohol (0-0.07) % 05/19/21 05/19/21 05/19/21 Range/Units 03:02 03:02 03:02 WBC (4.5-11.0) K/mm3 RBC (3.65-5.03) M/mm3 Hgb (10.1-14.3) gm/dl Hct (30.3-42.9) % MCV (79-97) fl MCH (28-32) pg MCHC (30-34) % RDW (13.2-15.2) % Plt Count (140-440) K/mm3 Lymph % (Auto) (13.4-35.0) % [place] % (Auto) (0.0-7.3) % Eos % (Auto) (0.0-4.3) % Baso % (Auto) (0.0-1.8) % Lymph # (Auto) (1.2-5.4) K/mm3 [place] # (Auto) (0.0-0.8) K/mm3 Eos # (Auto) (0.0-0.4) K/mm3 Baso # (Auto) (0.0-0.1) K/mm3 Seg Neutrophils % (40.0-70.0) % Seg Neutrophils # (1.8-7.7) K/mm3 Sodium (137-145) mmol/L Potassium (3.6-5.0) mmol/L Chloride (98-107) mmol/L Carbon Dioxide (22-30) mmol/L Anion Gap mmol/L BUN (7-17) mg/dL Creatinine (0.6-1.2) mg/dL Estimated GFR ml/min BUN/Creatinine Ratio % Glucose (65-100) mg/dL Calcium (8.4-10.2) mg/dL Total Bilirubin (0.1-1.2) mg/dL AST (5-40) units/L ALT (7-56) units/L Alkaline Phosphatase (35-129) units/L Ammonia (25-60) umol/L Total Creatine Kinase (30-135) units/L Troponin T (0.00-0.029) ng/mL Total Protein (6.3-8.2) g/dL Albumin (3.9-5) g/dL Albumin/Globulin Ratio % TSH 0.835 (0.270-4.200) mlU/mL HCG, Qual (Negative) Urine Color (Yellow) Urine Turbidity (Clear) Urine pH (5.0-7.0) Ur Specific [place] (1.003-1.030) Urine Protein (Negative) mg/dL Urine Glucose (UA) (Negative) mg/dL Urine Ketones (Negative) mg/dL Urine Blood (Negative) Urine Nitrite (Negative) Urine Bilirubin (Negative) Urine Urobilinogen (<2.0) mg/dL Ur Leukocyte Esterase (Negative) Urine WBC (Auto) (0.0-6.0) /HPF Urine RBC (Auto) (0.0-6.0) /HPF Salicylates < 0.3 L (2.8-20.0) mg/dL Urine Opiates Screen Urine Methadone Screen Acetaminophen 5.0 L (10.0-30.0) ug/mL Ur Barbiturates Screen Ur Phencyclidine Scrn Ur Amphetamines Screen U Benzodiazepines Scrn Urine Cocaine Screen U Marijuana (THC) Screen Drugs of Abuse Note Plasma/Serum Alcohol (0-0.07) % 05/19/21 05/19/21 05/19/21 Range/Units 03:02 03:02 03:44 WBC (4.5-11.0) K/mm3 RBC (3.65-5.03) M/mm3 Hgb (10.1-14.3) gm/dl Hct (30.3-42.9) % MCV (79-97) fl MCH (28-32) pg MCHC (30-34) % RDW (13.2-15.2) % Plt Count (140-440) K/mm3 Lymph % (Auto) (13.4-35.0) % [place] % (Auto) (0.0-7.3) % Eos % (Auto) (0.0-4.3) % Baso % (Auto) (0.0-1.8) % Lymph # (Auto) (1.2-5.4) K/mm3 [place] # (Auto) (0.0-0.8) K/mm3 Eos # (Auto) (0.0-0.4) K/mm3 Baso # (Auto) (0.0-0.1) K/mm3 Seg Neutrophils % (40.0-70.0) % Seg Neutrophils # (1.8-7.7) K/mm3 Sodium (137-145) mmol/L Potassium (3.6-5.0) mmol/L Chloride (98-107) mmol/L Carbon Dioxide (22-30) mmol/L Anion Gap mmol/L BUN (7-17) mg/dL Creatinine (0.6-1.2) mg/dL Estimated GFR ml/min BUN/Creatinine Ratio % Glucose (65-100) mg/dL Calcium (8.4-10.2) mg/dL Total Bilirubin (0.1-1.2) mg/dL AST (5-40) units/L ALT (7-56) units/L Alkaline Phosphatase (35-129) units/L Ammonia (25-60) umol/L Total Creatine Kinase (30-135) units/L Troponin T (0.00-0.029) ng/mL Total Protein (6.3-8.2) g/dL Albumin (3.9-5) g/dL Albumin/Globulin Ratio % TSH (0.270-4.200) mlU/mL HCG, Qual Negative (Negative) Urine Color Straw (Yellow) Urine Turbidity Clear (Clear) Urine pH 5.0 (5.0-7.0) Ur Specific [place] 1.005 (1.003-1.030) Urine Protein <15 mg/dl (Negative) mg/dL Urine Glucose (UA) Neg (Negative) mg/dL Urine Ketones Neg (Negative) mg/dL Urine Blood Sm (Negative) Urine Nitrite Neg (Negative) Urine Bilirubin Neg (Negative) Urine Urobilinogen < 2.0 (<2.0) mg/dL Ur Leukocyte Esterase Neg (Negative) Urine WBC (Auto) < 1.0 (0.0-6.0) /HPF Urine RBC (Auto) 1.0 (0.0-6.0) /HPF Salicylates (2.8-20.0) mg/dL Urine Opiates Screen Urine Methadone Screen Acetaminophen (10.0-30.0) ug/mL Ur Barbiturates Screen Ur Phencyclidine Scrn Ur Amphetamines Screen U Benzodiazepines Scrn Urine Cocaine Screen U Marijuana (THC) Screen Drugs of Abuse Note Plasma/Serum Alcohol < 0.01 (0-0.07) % 05/19/21 Range/Units 03:44 WBC (4.5-11.0) K/mm3 RBC (3.65-5.03) M/mm3 Hgb (10.1-14.3) gm/dl Hct (30.3-42.9) % MCV (79-97) fl MCH (28-32) pg MCHC (30-34) % RDW (13.2-15.2) % Plt Count (140-440) K/mm3 Lymph % (Auto) (13.4-35.0) % [place] % (Auto) (0.0-7.3) % Eos % (Auto) (0.0-4.3) % Baso % (Auto) (0.0-1.8) % Lymph # (Auto) (1.2-5.4) K/mm3 [place] # (Auto) (0.0-0.8) K/mm3 Eos # (Auto) (0.0-0.4) K/mm3 Baso # (Auto) (0.0-0.1) K/mm3 Seg Neutrophils % (40.0-70.0) % Seg Neutrophils # (1.8-7.7) K/mm3 Sodium (137-145) mmol/L Potassium (3.6-5.0) mmol/L Chloride (98-107) mmol/L Carbon Dioxide (22-30) mmol/L Anion Gap mmol/L BUN (7-17) mg/dL Creatinine (0.6-1.2) mg/dL Estimated GFR ml/min BUN/Creatinine Ratio % Glucose (65-100) mg/dL Calcium (8.4-10.2) mg/dL Total Bilirubin (0.1-1.2) mg/dL AST (5-40) units/L ALT (7-56) units/L Alkaline Phosphatase (35-129) units/L Ammonia (25-60) umol/L Total Creatine Kinase (30-135) units/L Troponin T (0.00-0.029) ng/mL Total Protein (6.3-8.2) g/dL Albumin (3.9-5) g/dL Albumin/Globulin Ratio % TSH (0.270-4.200) mlU/mL HCG, Qual (Negative) Urine Color (Yellow) Urine Turbidity (Clear) Urine pH (5.0-7.0) Ur Specific [place] (1.003-1.030) Urine Protein (Negative) mg/dL Urine Glucose (UA) (Negative) mg/dL Urine Ketones (Negative) mg/dL Urine Blood (Negative) Urine Nitrite (Negative) Urine Bilirubin (Negative) Urine Urobilinogen (<2.0) mg/dL Ur Leukocyte Esterase (Negative) Urine WBC (Auto) (0.0-6.0) /HPF Urine RBC (Auto) (0.0-6.0) /HPF Salicylates (2.8-20.0) mg/dL Urine Opiates Screen Presumptive negative Urine Methadone Screen Presumptive negative Acetaminophen (10.0-30.0) ug/mL Ur Barbiturates Screen Presumptive negative Ur Phencyclidine Scrn Presumptive negative Ur Amphetamines Screen Presumptive negative U Benzodiazepines Scrn Presumptive negative Urine Cocaine Screen Presumptive negative U Marijuana (THC) Screen Presumptive positive Drugs of Abuse Note Disclamer Plasma/Serum Alcohol (0-0.07) % - EKG Data -: EKG Interpreted by [place] EKG shows normal: sinus rhythm, axis, intervals, QRS complexes, ST-T waves Rate: tachycardia (114 bpm) - EKG Data When compared to previous EKG there are: previous EKG unavailable Interpretation: normal EKG (With tachycardia 114 bpm) - Radiology Data Radiology results: report reviewed CT head without contrast INDICATION : Altered mental status TECHNIQUE: Axial imaging performed from the skull apex through the skull base without the use of contrast. All CT examinations performed at this facility utilize dose modulation, iterative reconstruction or weight-based dosing, when appropriate, to reduce radiation dose to as low as reasonably achievable. COMPARISON: None FINDINGS: No acute intracranial hemorrhage or parenchymal abnormality. Ventricles are normal in size and appear symmetric. Soft tissues including the orbits appear normal. No acute osseous abnormality. Sinuses and mastoid air cells are clear. IMPRESSION: No acute abnormality. - Medical Decision Making This patient presents to the emergency department with altered mental status and the report that she consumed a marijuana edible and some wine. Initially the patient is extremely sleepy or sedated. She will wake up briefly with tactile stimuli but goes right back to sleep if not continuously stimulated. CT scan of the head without contrast does not show any bleed, large vessel occlusion, or any other acute process. Patient's labs have been unremarkable including CBC, CMP, TSH, negative troponin, normal CK level, negative ammonia, urinalysis, blood alcohol level. UDS positive only for marijuana. EKG does not have any morphology consistent with ST elevation myocardial infarction or any arrhythmia. Patient was given some IV fluid resuscitation. She was reevaluated multiple times over about 3 hours and is now much more awake and alert, currently AAO x3. She does not have any focal, motor or sensory deficits and her cranial nerves are intact. We discussed avoiding any further illicit drug use, mixing of substances, and she has been instructed to follow-up with her PCP in the next few days. Critical Care Time: No Critical care attestation.: If time is entered above; I have spent that time in minutes in the direct care of this critically ill patient, excluding procedure time. ED Disposition Clinical Impression: Unresponsive episode Marijuana intoxication Qualifiers: Complication of substance-induced condition: with unspecified complication Qualified Code(s): F12.929 - Cannabis use, unspecified with intoxication, unspecified Disposition: 01 HOME / SELF CARE / HOMELESS Is pt being admited?: No Condition: Stable Instructions: What You Need to Know About Marijuana Use Additional Instructions: Please follow-up with a primary care physician in the next few days. Please avoid any further marijuana or any illicit drug use. Do not mix substances. Return to the emergency department with any worsening of your symptoms, new or concerning symptoms not addressed during this current emergency department visit, or with any acute distress. Referrals: PRIMARY CARE, [Primary Care Provider] - 2-3 Days Time of Disposition: 05:27
--- NOTE | 2021-05-19 03:57 | Cat Scan Report ---
CT head without contrast INDICATION : Altered mental status TECHNIQUE: Axial imaging performed from the skull apex through the skull base without the use of con trast. All CT examinations performed at this facility utilize dose modulation, iterative reconstruct ion or weight-based dosing, when appropriate, to reduce radiation dose to as low as reasonably achiev able. COMPARISON: None FINDINGS: No acute intracranial hemorrhage or parenchymal abnormality. Ventricles are normal in si ze and appear symmetric. Soft tissues including the orbits appear normal. No acute osseous abnorm ality. Sinuses and mastoid air cells are clear. IMPRESSION: No acute abnormality. Signer Name: Sanjiv Hartley MD Signed: 05/19/2021 3:53 AM Workstation Name: [id number]
[2021-05-19 04:02] LABS: Bilirubin,Urine NEG (Negative); Blood,Urine SM (Negative); Color,Urine Straw (Yellow); Protein,Urine <15 mg/dL mg/dL (Negative); Urobilinogen,Urine < 2.0 mg/dL (<2.0); WBC,Urine < 1.0 /HPF (0.0-6.0)
[2021-05-19 04:07] LABS: Basophils % (Auto) 0.4 % (0.0-1.8); Eosinophils # (Auto) 0.1 K/mm3 (0.0-0.4); Eosinophils % (Auto) 1.4 % (0.0-4.3); Hematocrit 40.3 % (30.3-42.9); Hemoglobin 13.8 gm/dl (10.1-14.3); Lymphocytes # (Auto) 1.7 K/mm3 (1.2-5.4); Mean Corpuscular HGB Conc 34 % (30-34); Mean Corpuscular Volume 88 fl (79-97); Monocytes # (Auto) 0.6 K/mm3 (0.0-0.8); Monocytes % (Auto) 9.8 % (0.0-7.3); Platelet Count 267 K/mm3 (140-440); Red Cell Distribution Width 13.4 % (13.2-15.2)
[2021-05-19 04:10] LABS: Amphetamine Screen,Urine PRESUMPTIVE NEGATIVE; Benzodiazepines Screen,Urine PRESUMPTIVE NEGATIVE; Cannabinoid Screen,Urine PRESUMPTIVE POSITIVE; Cocaine Screen,Urine PRESUMPTIVE NEGATIVE; Methadone Screen,Urine PRESUMPTIVE NEGATIVE; Opiate Screen,Urine PRESUMPTIVE NEGATIVE
[2021-05-19 04:15] LABS: Alanine Aminotransferase 11 units/L (7-56); Albumin 4.5 g/dL (3.9-5); Blood Urea Nitrogen 12 mg/dL (7-17); Calcium 10.2 mg/dL (8.4-10.2); Hemolysis Index 0
[2021-05-19 04:21] LABS: BUN/Creatinine Ratio 17
[2021-05-19 06:28] VITALS: BP 106/55
--- NOTE | 2021-05-20 11:46 | Electrocardiograph Report ---
[facility] Test Date: 2021-05-19 Test Time: 02:52:29 Pat Name: STEPHANIE PARKS Department: Room: Gender: F [employer]er: CECILIA : 1995 Requested By: NUPUR MARTIN Order Number: [id number] Reading MD: Seun Sheth Measurements Intervals [place] Rate: 114 P: 64 PA: 143 QRS: 76 QRSD: 82 T: 26 QT: 323 QTc: 446 Interpretive Statements Sinus tachycardia Probable left atrial enlargement No previous ECG available for comparison Electronically Signed On 05-20-2021 11:45:58 EDT by Seun Sheth
== END 2021-05-19 06:32 | disposition home or self-care (01) ==
LOC: ED 02:32
DX: R40.4 Transient alteration of awareness (principal); F12.929 Cannabis use, unspecified with intoxication, unspecified
CPT/HCPCS: 36415; 70450; 80053; 80307; 81001; 82140; 82550; 84443; 84484; 84703; 85025; 93005; 96360; 99284; J7030; 80320; G0480